=== PATIENT | female | born 1965 | race Two or more races ===

== ENCOUNTER 2018-01-08 10:56 | Outpatient (CLI) ==
--- NOTE | 2018-01-08 13:56 | DI ---
EXAM: Two views of the chest. History: Cough. Findings: Heart size is normal. No focal consolidation. No appreciable pleural fluid and no pneumo thorax. No acute osseous abnormalities. Impression: No acute cardiopulmonary process
--- NOTE | 2018-01-08 14:03 | CT ---
EXAM: CT of the sinuses without contrast History: Maxillary pressure, sinus pain. Technique: Multiplanar CT images through the sinuses were obtained without the administration of IV contrast Findings: No acute fracture or dislocation. Paranasal sinuses are clear. Nasal septum is bowed to the right. Bilateral ostiomeatal units are not occluded. Mastoid air cells are clear. Orbits are i ntact. Visualized intracranial contents demonstrate no acute findings. 1.5 cm calcification within the right submandibular gland. No inflammation of the submandibular glands. Impression: 1. Clear paranasal sinuses. 2. Large calcification within the right submandibular gland without surrounding inflammation.
== END 2018-01-08 10:57 | disposition home or self-care (01) ==
LOC: RAD 10:56
PROVIDERS: ATTEND Family Medicine
DX: J34.89 Other specified disorders of nose and nasal sinuses (principal); R51 Headache; R05 Cough; Z00.00 Encounter for general adult medical examination without abnormal findings; I10 Essential (primary) hypertension; E78.5 Hyperlipidemia, unspecified; R73.03 Prediabetes; J45.909 Unspecified asthma, uncomplicated; T78.40XA Allergy, unspecified, initial encounter
CPT/HCPCS: 36415; 80053; 80061; 80306; 82306; 83036; 84439; 84443; 85025

== ENCOUNTER 2018-01-20 13:54 | Outpatient (CLI) | END 2018-01-20 13:55 | disposition home or self-care (01) | LOC: CAR 13:54 | PROVIDERS: ATTEND Family Medicine | DX: E78.5 Hyperlipidemia, unspecified (principal); E11.9 Type 2 diabetes mellitus without complications; I10 Essential (primary) hypertension; F32.9 Major depressive disorder, single episode, unspecified; E66.01 Morbid (severe) obesity due to excess calories | CPT/HCPCS: 93005; 93010 ==

== ENCOUNTER 2018-02-03 17:00 | Outpatient (CLI) ==
--- NOTE | 2018-02-04 10:00 | DI ---
EXAM: CHEST FRONTAL AND LATERAL VIEWS HISTORY: Shortness of breath. COMPARISON: 01/08/2018 FINDINGS: Mildly prominent heart size is stable. No acute infiltrates are seen. No vascular congest ion. There is no consolidation, visible pleural fluid or pneumothorax. Bones reveal no acute fractur e. IMPRESSION: No acute cardiopulmonary process.
== END 2018-02-03 17:01 | disposition home or self-care (01) ==
LOC: LAB 17:00
PROVIDERS: ATTEND Family Medicine
DX: R06.02 Shortness of breath (principal); R05 Cough; D72.829 Elevated white blood cell count, unspecified; J45.909 Unspecified asthma, uncomplicated
CPT/HCPCS: 36415; 85025

== ENCOUNTER 2018-02-24 13:52 | Outpatient (CLI) ==
--- NOTE | 2018-02-24 15:50 | CT ---
EXAM: CT of the abdomen pelvis without contrast History: Left lower quadrant abdominal pain. Technique: Multiplanar CT images through the abdomen pelvis were obtained without the administration of IV contrast Findings: Lung bases are free of consolidation. Calcified granulomas are seen within the thorax. N o acute osseous abnormalities. Moderate to severe degenerative disc disease at L5-S1. No discrete gallstones identified by CT. The liver is fatty. Spleen is unremarkable. No renal ston es and no hydronephrosis. No peripancreatic inflammation. Adrenal glands are unremarkable. Tiny fa t containing umbilical hernia. The appendix is not dilated or inflamed. No bowel obstruction. No b ladder wall thickening. Uterus is not seen. No perirectal inflammation. Colonic diverticulosis. T here is inflammation and trace fluid seen adjacent to the proximal sigmoid colon with reactive wall t hickening. No free air and no abscess. Impression: 1. Acute uncomplicated sigmoid diverticulitis. No abscess and no free air. 2. Hepatic steatosis. 3. Moderate to severe degenerative disc disease at L5-S1
== END 2018-02-24 13:53 | disposition home or self-care (01) ==
LOC: LAB 13:52
PROVIDERS: ATTEND Family Medicine
DX: R10.30 Lower abdominal pain, unspecified (principal); Z87.19 Personal history of other diseases of the digestive system
CPT/HCPCS: 36415; 80053; 81001; 85025; 87086

== ENCOUNTER 2018-03-01 06:32 | Outpatient (CLI) ==
--- NOTE | 2018-03-01 08:24 | ECHO2D ---
Date of Exam: 03/01/18 Ordering Physician: DR. JOVANI DUMAS Room #: OP Reason for Echo: ABNORMAL EKG, HYPERLIPIDEMIA, HTN M-Mode Normal Adult Results LV Dimensions Normal Adult Results AoV Opening excursions >1.6 >1.6 LVEDD-base- 3.5-5.8 4.1 Ao root dimensions 2.0-3.7 3.2 LVESD-base- 3.1-4.6 L. Atrium dimensions 1.9-3.8 3.4 Post. Wall thickness 0.8-1.1 1.1 IV septum (thickness) 0.7-1.2 1.3 Post. Wall excursion 0.72-1.3 NORMAL Septal motion NORMAL Systolic motion R. Ventricular cavity 1.5-2.0 NORMAL LVEF 60% 65% Paradoxical septal wall motion NORMAL 2-D : 2-D M Mode Echocardiogram was performed using apical four chamber and left parasternal long and short axis views. Mitral, tricuspid and aortic valves appear to be normal. Contractility of the left ventricle seems to be normal, so is the cavity size. Left atrial cavity size and aortic root appear to be normal. There is no pericardial effusion. There is no thrombus noted in the left ventricular or left aortic cavity. No mitral valve prolapse noted. M-MODE: MV: NORMAL AV: NORMAL TV: NORMAL PV: CHAMBER SIZE: NORMAL WALL MOTION: NORMAL PERICARDIUM: NORMAL INTERPRETATION: 1. BORDERLINE LEFT VENTRICULAR HYPERTROPHY 2. NORMAL LEFT VENTRICLE SIZE AND CONTRACTILITY, EJECTION FRACTION 65% 3. NORMAL VALVES MTDD
== END 2018-03-01 06:33 | disposition home or self-care (01) ==
LOC: CAR 06:32
PROVIDERS: ATTEND Family Medicine
DX: R94.31 Abnormal electrocardiogram [ECG] [EKG] (principal); E78.5 Hyperlipidemia, unspecified

== ENCOUNTER 2018-05-07 11:20 | Outpatient (CLI) | END 2018-05-07 11:21 | disposition home or self-care (01) | LOC: LAB 11:20 | PROVIDERS: ATTEND Family Medicine | DX: E78.5 Hyperlipidemia, unspecified (principal); E11.9 Type 2 diabetes mellitus without complications; N39.0 Urinary tract infection, site not specified | CPT/HCPCS: 36415; 80053; 80061; 81001; 83036; 85025 ==